=== PATIENT | male | born 1980 | race Two or more races ===

== ENCOUNTER 2021-01-27 16:30 | Emergency (ER) | payer SELFPAY ==
[~2021-01-27] VITALS: Ht 175.3 cm; Wt 100.0 kg
[2021-01-27] MEDS ORDERED: HYDROCODONE/ACETAMINOPHEN 5-325 MG TABLET PO ONE (18:15)
[2021-01-27 18:33] VITALS: BP 115/76
== END 2021-01-27 19:13 | disposition home or self-care (01) ==
LOC: EMS 16:30
DX: S52.592A Other fractures of lower end of left radius, initial encounter for closed fracture (principal); S52.612A Displaced fracture of left ulna styloid process, initial encounter for closed fracture; X36.1XXA Avalanche, landslide, or mudslide, initial encounter; Y93.89 Activity, other specified; Y92.89 Other specified places as the place of occurrence of the external cause; Y99.8 Other external cause status
CPT/HCPCS: 99283